=== PATIENT | male | born 2000 ===

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

== ENCOUNTER 2020-01-14 13:25 | Inpatient (IN) | payer MEDICAID ==
[~2020-01-14] VITALS: Ht 165.1 cm; Wt 65.3 kg
[~2020-01-14 13:25] MED LIST: DIVA-112 PO; MIRT-89 PO; OLAN10TA6 PO
[2020-01-14] MEDS ORDERED: HALOPERIDOL 5 MG TABLET PO PRN (19:00)
[2020-01-14] MEDS ORDERED: ZOLPIDEM TARTRATE 10 MG TABLET PO PRN (19:00)
[2020-01-14 19:10] VITALS: BP 130/78
[2020-01-15 03:03] VITALS: BP 118/69
[2020-01-15] MEDS ORDERED: OMEPRAZOLE 20 MG CAPSULE PO PRN (06:45)
[2020-01-15] MEDS ORDERED: CloNIDine HCL 0.1 MG TABLET PO PRN (06:45)
[2020-01-15] MEDS ORDERED: DOCUSATE SODIUM 100 MG CAPSULE PO PRN (06:45)
[2020-01-15] MEDS ORDERED: LOPERAMIDE HCL 2 MG CAPSULE PO PRN (06:45)
[2020-01-15] MEDS ORDERED: ONDANSETRON HCL 4 MG TABLET PO PRN (06:45)
[2020-01-15] MEDS ORDERED: PETROLATUM,WHITE 28 GM JELLY TP PRN (06:45)
[2020-01-15] MEDS ORDERED: ALBUTEROL SULFATE HFA 90 MCG/PUFF 8 GM INHALER IH PRN (06:45)
[2020-01-15] MEDS ORDERED: ACETAMINOPHEN 325 MG TABLET PO PRN (06:45)
[2020-01-15] MEDS ORDERED: MAGNESIUM HYDROXIDE SUSPENSION 30 ML UDCUP PO PRN (06:45)
[2020-01-15] MEDS ORDERED: MAG HYDROX/AL HYDROX/SIMETH ES 30 ML SUSPENSION UDCUP PO PRN (06:45)
[2020-01-15] MEDS ORDERED: BACITRACIN 28.4 GM OINTMENT TP PRN (06:45)
[2020-01-15] MEDS ORDERED: IBUPROFEN 600 MG TABLET PO PRN (06:45)
[2020-01-15 08:41] VITALS: BP 105/60
[2020-01-15] MEDS: DIVALPROEX SODIUM 500 MG DR TABLET PO SCH (16:29)
[2020-01-15] MEDS: LORazepam 2 MG TABLET PO PRN (20:05)
[2020-01-15] MEDS: OLANZapine 5 MG RAPDIS TABLET PO SCH (20:05)
[2020-01-16 03:08] VITALS: BP 121/72
[2020-01-16 08:28] VITALS: BP 127/79
[2020-01-16] MEDS: DIVALPROEX SODIUM 500 MG DR TABLET PO SCH ×2 (08:33→16:12)
[2020-01-16 16:13] VITALS: BP 126/88
[2020-01-16] MEDS: OLANZapine 5 MG RAPDIS TABLET PO SCH (20:23)
[2020-01-17] MEDS: DIVALPROEX SODIUM 500 MG DR TABLET PO SCH ×2 (08:22→16:35)
[2020-01-17 08:25] VITALS: BP 135/85
[2020-01-17 16:17] VITALS: BP 132/74
[2020-01-17] MEDS: LORazepam 2 MG TABLET PO PRN ×2 (16:35→20:35)
[2020-01-17] MEDS: OLANZapine 5 MG RAPDIS TABLET PO SCH (20:29)
[2020-01-18 00:09] VITALS: BP 126/70
[2020-01-18 08:07] VITALS: BP_SYST 100; BP_SYST 122; BP_DIAS 59; BP_DIAS 69
[2020-01-18] MEDS: DIVALPROEX SODIUM 500 MG DR TABLET PO SCH ×2 (09:57→16:10)
[2020-01-18] MEDS: LORazepam 2 MG TABLET PO PRN (16:10)
[2020-01-18 16:17] VITALS: BP 126/75
[2020-01-18] MEDS: OLANZapine 5 MG RAPDIS TABLET PO SCH (20:32)
[2020-01-19 00:20] VITALS: BP 108/72
[2020-01-19] MEDS: DIVALPROEX SODIUM 500 MG DR TABLET PO SCH ×2 (08:30→16:10)
[2020-01-19] MEDS: LORazepam 2 MG TABLET PO PRN (16:10)
[2020-01-19 16:15] VITALS: BP 123/76
[2020-01-19] MEDS: OLANZapine 5 MG RAPDIS TABLET PO SCH (20:24)
[2020-01-20 00:17] VITALS: BP 125/76
[2020-01-20 08:25] VITALS: BP 112/65
[2020-01-20] MEDS: DIVALPROEX SODIUM 500 MG DR TABLET PO SCH (08:56)
== END 2020-01-20 13:00 | disposition home or self-care (01) | DRG 885 ==
LOC: B3A 18:51
PROVIDERS: ADMIT Psychiatry & Neurology Psychiatry; ATTEND Psychiatry & Neurology Psychiatry
DX: F20.0 Paranoid schizophrenia (principal); F12.90 Cannabis use, unspecified, uncomplicated; F41.9 Anxiety disorder, unspecified; G47.00 Insomnia, unspecified; G40.909 Epilepsy, unspecified, not intractable, without status epilepticus; Z91.010 Allergy to peanuts; Z79.899 Other long term (current) drug therapy; Z72.0 Tobacco use; Z71.6 Tobacco abuse counseling; Z71.51 Drug abuse counseling and surveillance of drug abuser
CPT/HCPCS: Z7610